=== PATIENT | male | born 1960 | race Caucasian/White ===

== ENCOUNTER 2017-03-14 05:23 | Emergency (ER) | payer OTHER ==
[~2017-03-14] VITALS: Ht 188 cm; Wt 125.0 kg
[2017-03-14 05:29] VITALS: BP 227/110; PULSE 70; RESP 18; TEMP 98.1; O2SAT 97
[2017-03-14 05:38] VITALS: BP 245/116; PULSE 68; RESP 22; O2SAT 97
[2017-03-14] MEDS ORDERED: SERT-132 PO (05:42)
[2017-03-14] MEDS ORDERED: LISI10TA3 PO (05:42)
[2017-03-14] MEDS ORDERED: ASPI-516 CHEW (05:42)
[2017-03-14] MEDS ORDERED: CIPR500T2 PO (05:42)
[2017-03-14] MEDS ORDERED: TRAM50TA PO (05:42)
--- NOTE | 2017-03-14 05:56 | PD ---
HPI Chief Complaint: Flank/Kidney Pain Time Seen by Provider: 05:41 Travel History International Travel<30 days: No Contact w/Intl Traveler<30days: No Traveled to known affect area: No History of Present Illness HPI The patient is a 56 year old male who presents to the [facility] emergency department with a history of abdominal pain that woke him up from sound sleep 36 hours ago. It improved in the day yesterday. It is constant. It is a dull aching sensation with intermittent jabbing sharp pains. Today it began to get worse again approximately 2 hours after eating last night. He has had no vomiting or diarrhea. He has had 2 bouts of nausea. He has been sweating with the pain. He denies having any fevers. He reports that taking a deep breath or lying flat makes it worse. It is improved by curling into a ball. He had a urinalysis done yesterday at his primary care physician's office that revealed trace blood in his urine. He was started on ciprofloxacin and took 1 dose yesterday. He reports that last week he had urinary frequency and urgency. He reports that those symptoms resolved this week. Otherwise on review of systems , he denies having any cough, congestion, neck pain, or neurologic symptoms. [facility] Past Medical History Narrative Medical The patient's past medical history is significant for hypertension, sleep apnea , history of diverticulosis noted on colonoscopy previously. Diminished Hearing: No Hypertension: Yes Sleep Apnea: Yes Tetanus Vaccination: Unknown Influenza Vaccination: Yes Past Surgical History Narrative Surgical The patient's past surgical history is significant for rhinoplasty, uvulectomy, tonsil and adenoidectomy, appendectomy, umbilical hernia repair. Appendectomy: Yes Tonsillectomy: Yes (T&A) Other Surgery: Yes (rhinoplasty, uvula removal) Social History Alcohol Use: Yes (occasionally) Tobacco Use: No Substance Use: No Allergies-Medications (Allergen,Severity, Reaction): Coded Allergies: No Known Allergies (Unverified , 03/14/17) Reported Meds & Prescriptions Reported Meds & Active Scripts Active Reported Ciprofloxacin (Ciprofloxacin HCl) 500 Mg Tab 500 Mg PO BID 10 Days Sertraline (Sertraline HCl) 50 Mg Tab 50 Mg PO DAILY Aspirin 81 Mg Chew 81 Mg CHEW DAILY Lisinopril 10 Mg Tab 10 Mg PO DAILY Tramadol (Tramadol HCl) 50 Mg Tab 50 Mg PO Q6H PRN Review of Systems Except as stated in HPI: all other systems reviewed are Neg General / Constitutional: No: Fever Eyes: No: Visual changes HENT: No: Headaches Cardiovascular: No: Chest Pain or Discomfort Respiratory: No: Shortness of Breath Gastrointestinal: Positive: Nausea, Abdominal Pain, No: Vomiting, Diarrhea Genitourinary: Positive: Urgency, Frequency, No: Dysuria Musculoskeletal: No: Pain Skin: No Rash Neurologic: No: Weakness Psychiatric: No: Depression Endocrine: No: Polydipsia Hematologic/Lymphatic: No: Easy Bruising Physical Exam Narrative General: The patient is a well-developed well-nourished male in no acute distress. Head and Neck exam: Head is normocephalic atraumatic. Eyes: EOMI, pupils are equal round and reactive to light. Nose: Midline septum with pink mucous membranes Mouth: Dentition unremarkable. Moist mucus membranes. Posterior oropharynx is not erythematous. No tonsillar hypertrophy. Uvula midline. Airway patent. Neck: No palpable lymphadenopathy. No nuchal rigidity. No thyromegaly. Cardiovascular: Regular rate and rhythm without murmurs, gallops, or rubs. Lungs: Clear to auscultation bilaterally. No wheezes, rhonchi, or rales. Abdomen: Soft, with tenderness reported on palpation laterally along the mid aspect of the right side of the abdomen closer to the flank. No tenderness on palpation of McBurney's point. Normal bowel sounds are audible. No guarding, rebound, or rigidity. Negative De Leon's sign. Extremities: No clubbing, cyanosis, or edema. 2+ pulses in all 4 extremities. No calf tenderness on palpation. Back: No spinous process tenderness to palpation. No costovertebral angle tenderness to palpation. Neurologic Exam: Grossly nonfocal. Skin Exam: No rash noted. Intact skin that is warm and dry. Data Data Last Documented VS Vital Signs Date Time Temp Pulse Resp B/P (MAP) Pulse Ox O2 Delivery O2 Flow Rate FiO2 03/14/17 06:30 98 Room Air 03/14/17 05:38 68 22 03/14/17 05:29 98.1 Orders Orders Electrocardiogram (03/14/17 05:43) Complete Blood Count With Diff (03/14/17 05:43) Comprehensive Metabolic Panel (03/14/17 05:43) C-Reactive Protein (Crp) (03/14/17 05:43) Lipase (03/14/17 05:43) Urinalysis - C+S If Indicated (03/14/17 05:43) Iv Access Insert/Monitor (03/14/17 05:43) Ecg Monitoring (03/14/17 05:43) Oximetry (03/14/17 05:43) Ct Abd/Pel W/O Iv Contrast (03/14/17 06:39) Sodium Chlor 0.9% 1000 Ml Inj (Ns 1000 M (03/14/17 07:00) Ketorolac Inj (Toradol Inj) (03/14/17 07:00) Ondansetron Inj (Zofran Inj) (03/14/17 07:00) Labs Laboratory Tests Test 03/14/17 05:40 03/14/17 06:12 White Blood Count 15.0 TH/MM3 Red Blood Count 5.15 MIL/MM3 Hemoglobin 15.7 GM/DL Hematocrit 45.7 % Mean Corpuscular Volume 88.9 FL Mean Corpuscular Hemoglobin 30.5 PG Mean Corpuscular Hemoglobin Concent 34.3 % Red Cell Distribution Width 13.5 % Platelet Count 232 TH/MM3 Mean Platelet Volume 7.1 FL Neutrophils (%) (Auto) 85.5 % Lymphocytes (%) (Auto) 8.4 % Monocytes (%) (Auto) 5.7 % Eosinophils (%) (Auto) 0.2 % Basophils (%) (Auto) 0.2 % Neutrophils # (Auto) 12.8 TH/MM3 Lymphocytes # (Auto) 1.3 TH/MM3 Monocytes # (Auto) 0.9 TH/MM3 Eosinophils # (Auto) 0.0 TH/MM3 Basophils # (Auto) 0.0 TH/MM3 CBC Comment DIFF FINAL Differential Comment Blood Urea Nitrogen 20 MG/DL Creatinine 1.26 MG/DL Random Glucose 153 MG/DL Total Protein 7.4 GM/DL Albumin 4.2 GM/DL Calcium Level 9.5 MG/DL Alkaline Phosphatase 95 U/L Aspartate Amino Transf (AST/SGOT) 14 U/L Alanine Aminotransferase (ALT/SGPT) 21 U/L Total Bilirubin 0.7 MG/DL Sodium Level 136 MEQ/L Potassium Level 3.8 MEQ/L Chloride Level 103 MEQ/L Carbon Dioxide Level 23.6 MEQ/L Anion Gap 9 MEQ/L Estimat Glomerular Filtration Rate 59 ML/MIN C-Reactive Protein 1.20 MG/DL Lipase 204 U/L Urine Color YELLOW Urine Turbidity CLEAR Urine pH 6.5 Urine Specific [place] 1.016 Urine Protein TRACE mg/dL Urine Glucose (UA) NEG mg/dL Urine Ketones NEG mg/dL Urine Occult Blood LARGE Urine Nitrite NEG Urine Bilirubin NEG Urine Urobilinogen LESS THAN 2.0 MG/DL Urine Leukocyte Esterase NEG Urine RBC 74 /hpf Urine WBC 3 /hpf Urine Squamous Epithelial Cells <1 /hpf Urine Mucus FEW /lpf Microscopic Urinalysis Comment CULT NOT INDICATED MDM Medical Decision Making Medical Screen Exam Complete: Yes Emergency Medical Condition: Yes Medical Record Reviewed: Yes Differential Diagnosis Diverticulitis, versus colitis, versus pyelonephritis, versus kidney stone Narrative Course During the course of the patients emergency department visit, the patients history, examination, and differential diagnosis were reviewed with the patient. The patient was placed on a territory sales executive with oximetry and frequent blood pressure monitoring. The patient had IV access obtained and blood work sent for analysis. A CT scan of the abdomen and pelvis was ordered. The patient was initially provided normal saline 1 L IV fluid bolus, Toradol 15 mg IV for pain, Zofran 4 mg IV for nausea. The patients laboratory studies were reviewed and remarkable for a white count of 15, hemoglobin 15.7, platelets 232 with 85.5 neutrophils, CMP is remarkable for BUN of 20, glucose 153, AST 14, C-reactive protein 1.2, urinalysis shows large occult blood, 74 rbc's, otherwise unremarkable. CT scan of the abdomen and pelvis pending at the conclusion of my shift. The patient's case will be checked out to the oncoming emergency physician to disposition the patient based on the conclusion of the patient's workup. Diagnosis Primary Impression: Abdominal pain Qualified Codes: R10.31 - Right lower quadrant pain Effie Meneses MD Mar 14, 2017 05:56
[2017-03-14 06:04] LABS: AUTOMATED NEUTROPHIL # 12.8 TH/MM3 (1.8-7.7); BASOPHIL % 0.2 % (0.0-2.0); EOSINOPHIL % 0.2 % (0.0-4.0); HEMATOCRIT 45.7 % (39.0-51.0); HEMO FLAGS DIFF FINAL; LYMPH % 8.4 % (9.0-44.0); LYMPHOCYTE # 1.3 TH/MM3 (1.0-4.8); MEAN CELL VOLUME 88.9 FL (80.0-100.0); MEAN CORPUSCULAR HEMOGLOBIN 30.5 PG (27.0-34.0); MEAN CORPUSCULAR HGB CONC 34.3 % (32.0-36.0); MONO % 5.7 % (0.0-8.0); NEUT % 85.5 % (16.0-70.0); PLATELET COUNT 232 TH/MM3 (150-450); RED BLOOD COUNT 5.15 MIL/MM3 (4.50-5.90); RED CELL DISTRIBUTION WIDTH 13.5 % (11.6-17.2)
[2017-03-14 06:19] LABS: ANION GAP 9 MEQ/L (5-15); AST (GOT) 14 U/L (15-37); BICARBONATE 23.6 MEQ/L (21.0-32.0); BLOOD UREA NITROGEN 20 MG/DL (7-18); CHLORIDE 103 MEQ/L (98-107); GLOMERULAR FILTRATION RATE 59 ML/MIN (>89); POTASSIUM 3.8 MEQ/L (3.5-5.1); SODIUM (NA) 136 MEQ/L (136-145)
[2017-03-14 06:20] LABS: ALT (GPT) 21 U/L (12-78)
[2017-03-14 06:22] LABS: ALKALINE PHOSPHATASE 95 U/L (45-117); TOTAL BILIRUBIN ADULT 0.7 MG/DL (0.2-1.0)
[2017-03-14 06:30] VITALS: O2SAT 98
[2017-03-14 06:30] LABS: BLOOD, URINE LARGE (NEG); COMMENT (UR) CULT NOT INDICATED; CULTURE IF INDICATED CULT NOT INDICATED; GLUCOSE,URINE NEG (NEG); KETONE, URINE NEG (NEG); MUCUS URINE FEW /lpf (OCC); NITRITE,URINE NEG (NEG); PH, URINE 6.5 (5.0-8.5); SQUAMOUS EPITHELIAL CELL URINE <1 /hpf (0-5); URINE COLOR YELLOW (YELLW/STRAW)
[2017-03-14] MEDS ORDERED: KETOROLAC TROMETHAMINE 30 MG/ML (IVP) VIAL IV PUSH ONE (07:00)
[2017-03-14] MEDS ORDERED: ONDANSETRON HCL 4 MG/2 ML VIAL IV PUSH ONE (07:00)
[2017-03-14] MEDS ORDERED: SODIUM CHLOR 0.9% 1000 ML INJ 1,000 ML IV ONE (07:00)
--- NOTE | 2017-03-14 08:06 | RADRPT ---
EXAM DATE/TIME: 03/14/2017 07:40 [place] COMPARISON: No previous studies available for comparison. INDICATIONS : Right flank pain. ORAL CONTRAST: No oral contrast ingested. RADIATION DOSE: 12.26 CTDIvol (mGy) MEDICAL HISTORY : Hypertension. SURGICAL HISTORY : Appendectomy. ENCOUNTER: Initial ACUITY: 2 days PAIN SCALE: 6/10 LOCATION: Right flank TECHNIQUE: Volumetric scanning of the abdomen and pelvis was performed. Using automated exposure control and ad justment of the mA and/or kV according to patient size, radiation dose was kept as low as reasonably achievable to obtain optimal diagnostic quality images. DICOM format image data is available electro nically for review and comparison. The lack of IV contrast limits the diagnosis for certain organ pat hology. FINDINGS: LOWER LUNGS: The visualized lower lungs are clear. LIVER: Homogeneous density without lesion. There is no dilation of the biliary tree. No calcified gallston es. SPLEEN: Normal size without lesion. PANCREAS: Within normal limits. KIDNEYS: There is hydronephrosis of the right collecting system. There is perinephric edema of the right kidne y. The right ureter is dilated. There is a 6 mm stone in the distal right ureter at the UVJ. The left kidney is unremarkable. No calcified stones are seen in either the right or left kidneys. ADRENAL GLANDS: Within normal limits. VASCULAR: There is no aortic aneurysm. BOWEL/MESENTERY: The stomach, small bowel, and colon demonstrate no acute abnormality. There is no free intraperitone al air or fluid. No inflammatory changes. ABDOMINAL WALL: Within normal limits. RETROPERITONEUM: There is no lymphadenopathy. BLADDER: No wall thickening or mass. 6 mm stone in the distal right ureter. REPRODUCTIVE: Within normal limits. INGUINAL: There is no lymphadenopathy or hernia. MUSCULOSKELETAL: Within normal limits for patient age. CONCLUSION: 1. 6 mm stone in the distal right ureter at the right UVJ. 2. Hydronephrosis of the right collecting system. Rubén Gaitan MD on March 14, 2017 at 8:02 Board Certified Radiologist. This report was verified electronically.
[2017-03-14 08:47] VITALS: BP 129/63; PULSE 63; RESP 17; O2SAT 97
[2017-03-14] MEDS ORDERED: PERC5TAB12 PO (09:11)
[2017-03-14] MEDS ORDERED: ZOFR4TAB3 SL (09:11)
--- NOTE | 2017-03-14 09:11 | PD ---
Physical Exam Date Seen by Provider: Mar 14, 2017 Time Seen by Provider: 07:00 Narrative Patient signed out to me at [address] Meneses, please see Dr. Meneses's no for further details. He came in with right sided pains, labwork shows hematuria, awaiting CAT scan for further evaluation. Laboratory Tests Test 03/14/17 05:40 03/14/17 06:12 White Blood Count 15.0 TH/MM3 (4.0-11.0) Neutrophils (%) (Auto) 85.5 % (16.0-70.0) Lymphocytes (%) (Auto) 8.4 % (9.0-44.0) Neutrophils # (Auto) 12.8 TH/MM3 (1.8-7.7) Blood Urea Nitrogen 20 MG/DL (7-18) Random Glucose 153 MG/DL (74-106) Aspartate Amino Transf (AST/SGOT) 14 U/L (15-37) Estimat Glomerular Filtration Rate 59 ML/MIN (>89) C-Reactive Protein 1.20 MG/DL (0.00-0.30) Urine Occult Blood LARGE (NEG) Urine RBC 74 /hpf (0-3) Urine Mucus FEW /lpf (OCC) Last 24 hours Impressions Abdomen/Pelvis CT 03/14/17 0639 Signed Impressions: Service Date/Time: Tuesday, March 14, 2017 07:40 - CONCLUSION: 1. 6 mm stone in the distal right ureter at the right UVJ. 2. Hydronephrosis of the right collecting system. Rubén Gaitan MD CAT scan shows a 6 mm stone at the distal right UVJ with hydronephrosis. At this point, case was discussed with Dr. Ayon and he states that the patient follow-up in his office today or tomorrow for this issue. It appears that the pain is currently controlled and he is resting comfortably on reevaluation at 9 AM. Return for any worsening in pain, vomiting, fevers, or new symptoms as needed. The plan was discussed with the patient and he states understanding. Data Data Last Documented VS Vital Signs Date Time Temp Pulse Resp B/P (MAP) Pulse Ox O2 Delivery O2 Flow Rate FiO2 03/14/17 08:47 63 17 129/63 (85) 97 Room Air 03/14/17 05:29 98.1 Orders Orders Electrocardiogram (03/14/17 05:43) Complete Blood Count With Diff (03/14/17 05:43) Comprehensive Metabolic Panel (03/14/17 05:43) C-Reactive Protein (Crp) (03/14/17 05:43) Lipase (03/14/17 05:43) Urinalysis - C+S If Indicated (03/14/17 05:43) Iv Access Insert/Monitor (03/14/17 05:43) Ecg Monitoring (03/14/17 05:43) Oximetry (03/14/17 05:43) Ct Abd/Pel W/O Iv Contrast (03/14/17 06:39) Sodium Chlor 0.9% 1000 Ml Inj (Ns 1000 M (03/14/17 07:00) Ketorolac Inj (Toradol Inj) (03/14/17 07:00) Ondansetron Inj (Zofran Inj) (03/14/17 07:00) Ed Discharge Order (03/14/17 09:07) Labs Laboratory Tests Test 03/14/17 05:40 03/14/17 06:12 White Blood Count 15.0 TH/MM3 Red Blood Count 5.15 MIL/MM3 Hemoglobin 15.7 GM/DL Hematocrit 45.7 % Mean Corpuscular Volume 88.9 FL Mean Corpuscular Hemoglobin 30.5 PG Mean Corpuscular Hemoglobin Concent 34.3 % Red Cell Distribution Width 13.5 % Platelet Count 232 TH/MM3 Mean Platelet Volume 7.1 FL Neutrophils (%) (Auto) 85.5 % Lymphocytes (%) (Auto) 8.4 % Monocytes (%) (Auto) 5.7 % Eosinophils (%) (Auto) 0.2 % Basophils (%) (Auto) 0.2 % Neutrophils # (Auto) 12.8 TH/MM3 Lymphocytes # (Auto) 1.3 TH/MM3 Monocytes # (Auto) 0.9 TH/MM3 Eosinophils # (Auto) 0.0 TH/MM3 Basophils # (Auto) 0.0 TH/MM3 CBC Comment DIFF FINAL Differential Comment Blood Urea Nitrogen 20 MG/DL Creatinine 1.26 MG/DL Random Glucose 153 MG/DL Total Protein 7.4 GM/DL Albumin 4.2 GM/DL Calcium Level 9.5 MG/DL Alkaline Phosphatase 95 U/L Aspartate Amino Transf (AST/SGOT) 14 U/L Alanine Aminotransferase (ALT/SGPT) 21 U/L Total Bilirubin 0.7 MG/DL Sodium Level 136 MEQ/L Potassium Level 3.8 MEQ/L Chloride Level 103 MEQ/L Carbon Dioxide Level 23.6 MEQ/L Anion Gap 9 MEQ/L Estimat Glomerular Filtration Rate 59 ML/MIN C-Reactive Protein 1.20 MG/DL Lipase 204 U/L Urine Color YELLOW Urine Turbidity CLEAR Urine pH 6.5 Urine Specific Deputy 1.016 Urine Protein TRACE mg/dL Urine Glucose (UA) NEG mg/dL Urine Ketones NEG mg/dL Urine Occult Blood LARGE Urine Nitrite NEG Urine Bilirubin NEG Urine Urobilinogen LESS THAN 2.0 MG/DL Urine Leukocyte Esterase NEG Urine RBC 74 /hpf Urine WBC 3 /hpf Urine Squamous Epithelial Cells <1 /hpf Urine Mucus FEW /lpf Microscopic Urinalysis Comment CULT NOT INDICATED MDM Medical Record Reviewed: Yes Supervised Visit with MAURO: No Diagnosis Primary Impression: Abdominal pain Qualified Codes: R10.31 - Right lower quadrant pain Additional Impression: Renal colic on right side Referrals: Shane Ayon MD Med/Other Pt SpecificInfo: Prescription(s) given Scripts Ondansetron Odt (Zofran Odt) 4 Mg Tab 4 MG SL Q6HR Y for Nausea/Vomiting, #7 TAB 0 Refills Prov: Cristo Hogue MD 03/14/17 Oxycodone-Acetaminophen (Percocet) 5-325 mg Tab 1-2 TAB PO Q6H Y for PAIN, #15 TAB 0 Refills Prov: Cristo Hogue MD 03/14/17 Disposition: 01 DISCHARGE HOME Condition: Stable Cristo Hogue MD Mar 14, 2017 09:11
--- NOTE | 2017-03-14 10:09 | EKG ---
Date Performed: 03/14/2017 Time Performed: 05:53:54 PTAGE: 56 years EKG: Sinus rhythm WITH SHORT VA INTERVAL BORDERLINE ECG DOCTOR: Karissa Pressley Interpretating Date/Time 03/14/2017 10:07:22
== END 2017-03-14 10:04 | disposition home or self-care (01) ==
LOC: NEPE 05:23
DX: N13.2 Hydronephrosis with renal and ureteral calculous obstruction (principal); I10 Essential (primary) hypertension
CPT/HCPCS: 74176; 80053; 81001; 83690; 85025; 86140; 93005; 96361; 96374; 96375; 99285; J1885; J2405; J7030

== ENCOUNTER 2017-03-17 01:50 | Emergency (ER) | payer OTHER ==
[~2017-03-17] VITALS: Ht 190.5 cm; Wt 125.0 kg
[~2017-03-17 01:50] MED LIST: ASPI-516 CHEW; CIPR500T2 PO; LISI10TA3 PO; PERC5TAB12 PO; SERT-132 PO; TRAM50TA PO; ZOFR4TAB3 SL
[2017-03-17 01:51] VITALS: BP 215/101; PULSE 86; RESP 16; TEMP 98.2; O2SAT 95
[2017-03-17] MEDS ORDERED: SODIUM CHLOR 0.9% 1000 ML INJ 1,000 ML IV ONE (02:00)
[2017-03-17] MEDS ORDERED: KETOROLAC TROMETHAMINE 30 MG/ML (IVP) VIAL IV PUSH ONE (02:00)
[2017-03-17] MEDS ORDERED: ONDANSETRON HCL 4 MG/2 ML VIAL IV PUSH ONE (02:00)
[2017-03-17] MEDS ORDERED: HYDROmorphone HCL PF 2 MG/ML VIAL IV PUSH ONE (02:00)
[2017-03-17] MEDS ORDERED: TAMSULOSIN HCL 0.4 MG CAP PO ONE (02:00)
--- NOTE | 2017-03-17 02:41 | PD ---
HPI . Flank pain Chief Complaint: Complaint Time Seen by Provider: 01:57 Travel History International Travel<30 days: No Contact w/Intl Traveler<30days: No Traveled to known affect area: No History of Present Illness HPI This patient presents with chief complaint of right flank pain. Onset was about 7 PM. He rates it 8/10. He denies any associated vomiting, fever or diaphoresis. He states that he feels like he ought to need to urinate but does not. He has no urge to urinate. Pain has been unrelieved by hydrocodone. This patient was seen here on 03/13 and diagnosed with a kidney stone. He followed up with his primary care provider who prescribed hydrocodone and Flomax. He states that his primary care provider did not feel that he needed to see a urologist. PFSH Past Medical History Diminished Hearing: No Hypertension: Yes Sleep Apnea: Yes Influenza Vaccination: Yes Past Surgical History Appendectomy: Yes Tonsillectomy: Yes (T&A) Other Surgery: Yes (rhinoplasty, uvula removal) Social History Alcohol Use: Yes (OCCASSIONALLY) Tobacco Use: No Substance Use: No Allergies-Medications (Allergen,Severity, Reaction): Coded Allergies: No Known Allergies (Unverified , 03/17/17) Reported Meds & Prescriptions Reported Meds & Active Scripts Active Zofran Odt (Ondansetron Odt) 4 Mg Tab 4 Mg SL Q6HR PRN Percocet (Oxycodone-Acetaminophen) 5-325 mg Tab 1-2 Tab PO Q6H PRN Reported Ciprofloxacin (Ciprofloxacin HCl) 500 Mg Tab 500 Mg PO BID 10 Days Sertraline (Sertraline HCl) 50 Mg Tab 50 Mg PO DAILY Aspirin 81 Mg Chew 81 Mg CHEW DAILY Lisinopril 10 Mg Tab 10 Mg PO DAILY Tramadol (Tramadol HCl) 50 Mg Tab 50 Mg PO Q6H PRN Review of Systems Except as stated in HPI: all other systems reviewed are Neg General / Constitutional: No: Fever, Chills Gastrointestinal: No: Nausea, Vomiting Genitourinary: Positive: Flank Pain, No: Urgency, Frequency, Dysuria, Hematuria Physical Exam Narrative GENERAL: Awake and alert and in no acute distress. SKIN: Warm and dry. HEAD: Normocephalic/atraumatic. EYES: Pupils are equal. Extraocular movements are intact. NECK: Normal range of motion. CARDIOVASCULAR: Regular rate and rhythm. RESPIRATORY: Nonlabored respirations. ABDOMEN: Soft and nontender. No CVA tenderness. MUSCULOSKELETAL: Atraumatic. NEUROLOGICAL: Nonfocal. PSYCHIATRIC: Appropriate mood and affect. Data Data Last Documented VS Vital Signs Date Time Temp Pulse Resp B/P (MAP) Pulse Ox O2 Delivery O2 Flow Rate FiO2 03/17/17 01:51 98.2 86 16 215/101 (139) 95 Room Air Orders Orders Hydromorphone Pf Inj (Dilaudid Pf Inj) (03/17/17 02:00) Tamsulosin (Flomax) (03/17/17 02:00) Ketorolac Inj (Toradol Inj) (03/17/17 02:00) Ondansetron Inj (Zofran Inj) (03/17/17 02:00) Sodium Chlor 0.9% 1000 Ml Inj (Ns 1000 M (03/17/17 02:00) MDM Medical Decision Making Medical Screen Exam Complete: Yes Emergency Medical Condition: Yes Medical Record Reviewed: Yes (patient was seen here on 03/13. He was diagnosed with a 6 mm right UVJ stone. He was given prescriptions here Percocet and Zofran.) Differential Diagnosis Differential diagnosis of flank pain includes but is not limited to kidney stone , pyelonephritis, musculoskeletal pain, PE Narrative Course This patient presents with right flank pain. He has a known kidney stone at the right UVJ. I have ordered IV fluids, IV Dilaudid, IV Toradol and Zofran. He has already had Flomax at home. Diagnosis Primary Impression: Flank pain Additional Impression: Kidney stone Patient Instructions: General Instructions, Renal Colic (DC) Med/Other Pt SpecificInfo: Prescription(s) given Scripts Oxycodone-Acetaminophen (Percocet) 5-325 mg Tab 1 TAB PO Q4H Y for PAIN, #12 TAB 0 Refills Prov: Nadia Lees MD 03/17/17 Ondansetron (Zofran) 4 Mg Tab 4 MG PO Q6HR Y for NAUSEA OR VOMITING, #10 TAB 0 Refills Prov: Nadia Lees MD 03/17/17 Disposition: 01 DISCHARGE HOME Condition: Stable Nadia Lees MD Mar 17, 2017 02:41
[2017-03-17] MEDS ORDERED: ZOFR4TAB PO (03:13)
[2017-03-17] MEDS ORDERED: PERC5TAB12 PO (03:13)
[2017-03-17 04:17] VITALS: RESP 16
== END 2017-03-17 04:18 | disposition home or self-care (01) ==
LOC: NEPC 01:50
DX: N20.0 Calculus of kidney (principal); I10 Essential (primary) hypertension
CPT/HCPCS: 96361; 96374; 96375; 99284; J1170; J1885; J2405; J7030